=== PATIENT | male | born 1955 | race Caucasian/White ===

== ENCOUNTER 2022-08-25 13:15 | Emergency (ER) | payer OTHER ==
[2022-08-25] MEDS ORDERED: Sodium Chloride 0.9% 2,000 ML ONE (13:44)
[2022-08-25 14:06] LABS: ALT (SGPT) 19 U/L (8-55); Albumin 3.3 g/dL (3.4-4.8); Alcohol Less than 10.0 mg/dL (Less than 10); Alkaline Phosphatase 83 U/L (40-110); Anion Gap 21 mmol/L (10-20); BUN (Urea Nitrogen) 103 mg/dL (8.4-25.7); Bilirubin, Total 0.4 mg/dL (0.2-1.2); Calc. Creatinine Clearance 0 mL/min (70-130); Calcium 9.2 mg/dL (7.8-10.44); Carbon Dioxide 17 mmol/L (23-31); Chloride 104 mmol/L (98-107); Estimated GFR 29; Globulin 4.9 g/dL (2.4-3.5); Glucose 165 mg/dL (80-115); Potassium 4.7 mmol/L (3.5-5.1); Protein, Total 8.2 g/dL (5.8-8.1); Sodium 137 mmol/L (136-145)
[2022-08-25 14:07] LABS: Hemoglobin 13.1 g/dL (14.0-18.0); Mean Corpuscular HGB CONC 31.8 g/dL (32.0-36.0); Mean Corpuscular Hemoglobin 29.4 pg (27.0-31.0); Mean Corpuscular Volume 92.3 fl (78.0-98.0); Mean Platelet Volume 6.1 fL (7.4-10.4); Platelet Count 559 10x3/uL (130-400); RBC Distribution Width 13.4 % (11.5-14.5); Red Blood Cell (RBC) Count 4.47 mill/uL (4.70-6.10); White Blood Cell (WBC) Count 23.1 10x3/uL (4.8-10.8)
[2022-08-25 14:08] LABS: #Basophils 0.2 thou/uL (0.0-0.2); #Eosinphils 0.1 thou/uL (0.0-0.7); #Monocytes 1.5 thou/uL (0.11-0.59); #Neutrophils 19.4 thou/uL (1.40-6.50); %Basophils 0.9 % (0.0-1.0); %Eosinophils 0.2 % (0.0-10.0); %Lymphocytes 8.4 % (21.0-51.0); %Monocytes 6.3 % (0.0-10.0); %Neutrophils 84.1 % (42.0-75.0)
[2022-08-25 14:23] LABS: AST (SGOT) 27 U/L (5-34); Magnesium 2.2 mg/dL (1.6-2.6)
[2022-08-25] MEDS ORDERED: cefTRIAXone (ROCEPHIN) 1 GM VIAL ONE (15:33)
[2022-08-25] MEDS ORDERED: Azithromycin 500 MG VIAL ONE (15:33)
[2022-08-25] MEDS ORDERED: Sodium Chloride 0.9% 100 ML ONE (15:34)
[2022-08-25] MEDS ORDERED: Sodium Chloride 0.9% 250 ML 250 ML ONE (15:36)
[2022-08-25 16:36] LABS: Lactic Acid 1.3 mmol/L (0.5-2.2)
== END 2022-08-25 17:51 | disposition short-term general hospital (02) ==
LOC: NAV ERS 13:15
DX: J18.9 Pneumonia, unspecified organism (principal); E86.0 Dehydration; R19.7 Diarrhea, unspecified; F17.210 Nicotine dependence, cigarettes, uncomplicated; J44.9 Chronic obstructive pulmonary disease, unspecified
CPT/HCPCS: 36415; 71045; 80053; 80307; 83605; 83735; 83880; 84484; 85025; 87040; 93005; 94760; 96361; 96365; 96368; J0456; J0696; J3490; J7050

== ENCOUNTER 2022-09-09 20:02 | Emergency (ER) | payer OTHER | END 2022-09-09 21:00 | disposition home or self-care (01) | LOC: NAV ERS 20:02 | DX: T83.098A Other mechanical complication of other urinary catheter, initial encounter (principal); I10 Essential (primary) hypertension; J44.9 Chronic obstructive pulmonary disease, unspecified; F17.210 Nicotine dependence, cigarettes, uncomplicated | CPT/HCPCS: 99283 ==